=== PATIENT | male | born 1990 | race Caucasian/White ===

== ENCOUNTER 2020-02-19 09:40 | Inpatient (IN) | payer OTHER ==
[2020-02-19 12:00] VITALS: BP 143/95
[2020-02-19] MEDS ORDERED: ASPIRIN 81 MG CHEWABLE TABLET PO ONE (13:45)
[2020-02-19] MEDS ORDERED: MORPHINE SULFATE 2 MG/ML SYRINGE IVP PRN (13:45)
[2020-02-19] MEDS ORDERED: BISACODYL 10 MG RECTAL RECTAL SUPPOSITORY PR PRN (13:45)
[2020-02-19] MEDS ORDERED: ZOLPIDEM TARTRATE 5 MG TABLET PO PRN (13:45)
[2020-02-19] MEDS ORDERED: ACETAMINOPHEN 325 MG TABLET PO PRN (13:45)
[2020-02-19] MEDS ORDERED: HYDROCODONE/ACETAMINOPHEN 5-325 MG TABLET PO PRN (13:45)
[2020-02-19] MEDS ORDERED: ONDANSETRON HCL 4 MG/2 ML VIAL IVP PRN (13:45)
[2020-02-19] MEDS ORDERED: MAGNESIUM HYDROXIDE SUSPENSION 30 ML UDCUP PO PRN (13:45)
[2020-02-19] MEDS ORDERED: INFLUENZA VIRUS VACCINE QVS 2019-20 (3YR+)/PF 60 MCG/0.5 ML SYRINGE IM ONE (14:30)
[2020-02-19] MEDS ORDERED: PNEUMOCOCCAL VACCINE POLYVALENT 0.5 ML VIAL [PPSV23] IM ONE (14:30)
[2020-02-19] MEDS: HEPARIN SODIUM,PORCINE 5,000 UNITS/ML VIAL SQ SCH ×2 (15:52→23:55)
[2020-02-19 16:02] VITALS: BP 135/72
[2020-02-19 21:52] VITALS: BP 130/73
[2020-02-19] MEDS: DOCUSATE SODIUM 100 MG CAPSULE PO SCH (21:59)
[2020-02-19] MEDS: ATORVASTATIN CALCIUM 20 MG TABLET PO SCH (21:59)
[2020-02-20 04:54] VITALS: BP 139/73
[2020-02-20] MEDS: HEPARIN SODIUM,PORCINE 5,000 UNITS/ML VIAL SQ SCH ×2 (08:10→16:03)
[2020-02-20] MEDS: DOCUSATE SODIUM 100 MG CAPSULE PO SCH ×2 (08:10→21:42)
[2020-02-20] MEDS: PANTOPRAZOLE SODIUM 40 MG DR TABLET PO SCH (08:10)
[2020-02-20 08:14] VITALS: BP 115/59
[2020-02-20 08:47] LABS: THYROID STIMULATING HORMONE 2.02 uIU/mL (0.36-3.74)
[2020-02-20 20:00] VITALS: BP 133/67
[2020-02-20] MEDS: ATORVASTATIN CALCIUM 20 MG TABLET PO SCH (21:42)
[2020-02-21] MEDS: HEPARIN SODIUM,PORCINE 5,000 UNITS/ML VIAL SQ SCH ×3 (01:21→15:47)
[2020-02-21 05:36] VITALS: BP 127/68
[2020-02-21 08:03] VITALS: BP 138/69
[2020-02-21] MEDS: DOCUSATE SODIUM 100 MG CAPSULE PO SCH (08:25)
[2020-02-21] MEDS: PANTOPRAZOLE SODIUM 40 MG DR TABLET PO SCH (08:25)
[2020-02-21 15:38] VITALS: BP 135/71
== END 2020-02-21 19:30 | DRG 948 ==
LOC: 6S 09:40
PROVIDERS: ADMIT Hospitalist; ATTEND Hospitalist
DX: R79.89 Other specified abnormal findings of blood chemistry (principal)
CPT/HCPCS: 84443; 93306; J1644